=== PATIENT | female | born 1975 | race Two or more races ===

== ENCOUNTER 2019-08-22 03:36 | Emergency (ER) | payer SELFPAY ==
[~2019-08-22] VITALS: Ht 162.6 cm; Wt 74.8 kg
== END 2019-08-22 05:16 ==
LOC: ER 03:38
DX: Z02.89 Encounter for other administrative examinations (principal)

== ENCOUNTER 2024-10-26 12:52 | Inpatient (IN) | payer MEDICAID, OTHER ==
[~2024-10-26] VITALS: Ht 170.2 cm; Wt 65.5 kg
[2024-10-26] MEDS: SODIUM CHLORIDE 0.9% 1,000 ML IV ONE (13:26)
[2024-10-26] MEDS: PANTOPRAZOLE 40 MG/10 ML VIAL INJ IV ONE (13:26)
[2024-10-26] MEDS: PROCHLORPERAZINE EDISYLATE 5 MG/ML 2ML VIAL IV ONE (13:26)
--- NOTE | 2024-10-26 13:42 | ED.PDOC ---
History of Present Illness HPI Comments This is a 49-year-old female who comes in with chief complaint of dizziness as well as significant amount of vomiting and a near syncopal episode. The patient states that she was drinking a significant amount of alcohol last night and then today she woke up very dizzy. She was at a restaurant and had a near syncopal episode as well as vomiting so EMS were called and the patient was transported to our facility. Upon arrival, the patient was still complaining of some nausea. She did receive Zofran 8 mg IV push as well as some normal saline. The patient denies any fever or chills. The patient denies any other substance use. Chief Complaint: Nausea/Vomiting Time Seen by MD: 13:01 Primary Care Provider: UNKNOWN Reviewed Notes: Nurses Notes, Medications, Allergies (Allergies to penicillin) Allergies: Coded Allergies: Penicillins (Verified Allergy, Unknown, 10/26/24) Information Source: Patient Mode of Arrival: EMS Severity: Moderate Timing: Hours Duration: Since onset Prehospital treatment: Grounds And Nursery Specialist, IVF, Other (Normal saline bolus, Zofran IV) Associated signs and symptoms Vomiting with dizziness and near-syncope Past Medical History PAST MEDICAL HISTORY: Denies Surgical History: Surgical History (Other): Uterine ablation HIGH SCHOOL LIBRARIAN History: No Pertinent HIGH SCHOOL LIBRARIAN History Family History Family History: No family hx of Cancer, No family hx of DM, No family hx of Heart melissa Social History Smoker: Other (VAPE) Alcohol: Heavy Drugs: Denies Drug Use Lives In: Home, Unobtainable Constitutional: reports: weakness; denies: chills, diaphoresis, fatigue, fever, malaise, sweats, others EENTM: denies: blurred vision, double vision, ear bleeding, ear discharge, ear drainage, ear pain, ear ringing, eye pain, eye redness, hearing loss, mouth pain, mouth swelling, nasal discharge, nose bleeding, nose congestion, nose pain, photophobia, tearing, throat pain, throat swelling, voice changes, others Respiratory: denies: cough, hemoptysis, orthopnea, SOB at rest, shortness of breath, SOB with excertion, stridor, wheezing, others Cardiovascular: reports: syncope (Near-syncope); denies: chest pain, dizzy spells, diaphoresis, Dyspnea on exertion, edema, irregular heart beat, left arm pain, lightheadedness, palpitations, PND, others Gastrointestinal: reports: nausea, vomiting; denies: abdomen distended, abdominal pain, blood streaked bowels, constipated, diarrhea, dysphagia, difficulty swallowing, hematemesis, melena, poor appetite, poor fluid intake, rectal bleeding, rectal pain, others Genitourinary: denies: abnormal vagina bleeding, burning, dyspareunia, dysuria, flank pain, frequency, hematuria, incontinence, pain, , vagina discharge, urgency, others Neurological: denies: dizziness, fainting, headache, left sided numbness, left sided weakness, numbness, paresthesia, pre-existing deficit, right sided numbness, right sided weakness, seizure, speech problems, tingling, tremors, weakness, others Musculoskeletal: denies: back pain, gout, joint pain, joint swelling, muscle pain, muscle stiffness, neck pain, others Integumetry: denies: bruises, change in color, change in hair/nails, dryness, laceration, lesions, lumps, rash, wounds, others Allergic/Immunocompromised: denies: Difficulty Healing, Frequent Infections, Hives, Itching, others Hematologic/Lymphatic: denies: anemia, blood clots, easy bleeding, easy bruising, swollen glands, others Endocrine: denies: excessive hunger, excessive sweating, excessive thirst, excessive urination, flushing, intolerance to cold, intolerance to heat, unexplained weight gain, unexplained weight loss, others Psychiatric: denies: anxiety, bipolar disorder, depression, hopeless, panic disorder, schizophrenia, sleepless, suicidal, others Physical Exam General Appearance: Moderate Distress HEENT: Pale Conjuntivae (L), Pale Conjuntivae (R), Pharynx Normal, TMs Normal Neck: Full Range of Motion, Non-Tender, Normal, Normal Inspection Respiratory: Chest Non-Tender, Lungs Clear, No Accessory Muscle Use, No Respiratory Distress, Normal Breath Sounds Cardiovascular: No Edema, No JVD, No Murmur, No Gallop, Normal Peripheral Pulses, Regular Rate/Rhythm Breast Exam: Deferred Gastrointestinal: No Organomegaly, Non Tender, No Pulsatile Mass, Normal Bowel Sounds, Soft Genitalia: Deferred Pelvic: Deferred Rectal: Deferred Extremities: No calf tenderness, Normal capillary refill, Normal inspection, Normal range of motion, Non-tender, No pedal edema Musculoskeletal : Apperance: Normal Neurologic: Alert, head grinder II-XII nml as Tested, Motor Weakness, Normal Affect, Normal Mood, No Sensory Deficits Cerebellar Function: Normal Reflexes: Normal Skin: Dry, Normal Color, Warm Lymphatic: No Adenopathy Was a procedure done? Was a procedure done?: No Differential Dx Considerations may include: Gastroenteritis, generalized weakness, dehydration, viral syndrome, alcohol withdrawal X-Ray, Labs, Meds, VS Vital Signs Date Time Temp Pulse Resp B/P (MAP) Pulse Ox O2 Delivery O2 Flow Rate FiO2 10/26/24 14:05 98.2 64 17 114/65 (81) 99 98.2 10/26/24 13:36 Room Air* 0 21 10/26/24 12:57 97.7 54 24 105/95 (98) 98 97.7 Lab Test 10/26/24 13:53 10/26/24 13:36 Range/Units Urine Color Colorless Yellow Urine Clarity Clear Clear Urine pH 8.0 5.0-9.0 Urine Specific [place] 1.013 1.001-1.035 Urine Protein Trace H Negative Urine Ketones Negative Negative Urine Blood 1+ H Negative /uL Urine Nitrite Negative Negative Urine Bilirubin Negative Negative Urine Urobilinogen Normal Negative mg/dL Urine Leukocyte Esterase Negative Negative /uL Urine RBC <1 0 - 4 /hpf Urine Microscopic WBC 1 0-5 /HPF Urine Squamous Epithelial Cells Few <5 /hpf Urine Bacteria Few H None Seen /hpf Urine Glucose Normal Normal mg/dL Urine Opiates Screen Neg NEGATIVE Urine Fentanyl Screen Neg NEGATIVE Urine Barbiturates Screen Neg NEGATIVE Urine Phencyclidine Screen Neg NEGATIVE Urine Amphetamines Screen Neg NEGATIVE Urine Benzodiazepines Screen Neg NEGATIVE Urine Cocaine Screen Neg NEGATIVE Urine Cannabinoids Screen Pos NEGATIVE White Blood Count 9.6 4.4-10.8 10^3/uL Red Blood Count 4.80 4.0-5.20 10^6/uL Hemoglobin 14.7 12.2-16.2 g/dL Hematocrit 42.1 36.0-46.0 % Mean Corpuscular Volume 87.6 80.0-100.0 fL Mean Corpuscular Hemoglobin 30.7 28.0-32.0 pg Mean Corpuscular Hemoglobin Concent 35.1 32.0-36.0 g/dL Red Cell Distribution Width 13.6 11.8-14.3 % Platelet Count 177 140-450 10^3/uL Mean Platelet Volume 8.1 6.9-10.8 fL Neutrophils (%) (Auto) 87.6 H 37.0-80.0 % Lymphocytes (%) (Auto) 8.3 L 10.0-50.0 % Monocytes (%) (Auto) 3.2 0.0-12.0 % Eosinophils (%) (Auto) 0.2 0.0-7.0 % Basophils (%) (Auto) 0.7 0.0-2.0 % Neutrophils # (Auto) 8.4 1.6-8.6 10 ^3/uL Lymphocytes # (Auto) 0.8 0.4-5.4 10 ^3/uL Monocytes # (Auto) 0.3 0-1.3 10 ^3/uL Eosinophils # (Auto) 0 0-0.8 10 ^3/uL Basophils # (Auto) 0.1 0-0.2 10 ^3/uL Nucleated Red Blood Cells 0.2 % Sodium Level 138 136-145 mmol/L Potassium Level 4.2 3.5-5.1 mmol/L Chloride Level 103 98-107 mmol/L Carbon Dioxide Level 25 20-31 mmol/L Anion Gap 10 5-15 Blood Urea Nitrogen 8 L 9-23 mg/dL Creatinine 0.68 0.550-1.02 mg/dL Glomerular Filtration Rate Calc 105 >90 mL/min BUN/Creatinine Ratio 11.8 10.0-20.0 Serum Glucose 131 H 74-106 mg/dL Calcium Level 9.8 8.7-10.4 mg/dL Total Bilirubin 0.5 0.2-1.0 mg/dL Aspartate Amino Transferase (AST) 17 13-40 U/L Alanine Aminotransferase (ALT) 23 7-40 U/L Alkaline Phosphatase 76 46-116 U/L Total Protein 7.8 5.7-8.2 g/dL Albumin 5.1 H 3.2-4.8 g/dL Lipase 28 12-53 U/L Plasma/Serum Blood Alcohol < 3.0 <10 mg/dL Current Medications Medications (Trade) Dose Ordered Sig/Ama Route Start Time Stop Time Status Last Admin Sodium Chloride 1,000 ml @ 1,000 mls/hr Q1H ONCE IV 10/26/24 13:15 10/26/24 14:14 DC 10/26/24 13:26 Prochlorperazine Edisylate (Compazine Inj) 10 mg ONCE ONCE IV 10/26/24 13:15 10/26/24 13:16 DC 10/26/24 13:26 Pantoprazole Sodium (Protonix) 40 mg ONCE ONCE IV 10/26/24 13:15 10/26/24 13:16 DC 10/26/24 13:26 Lorazepam (Ativan Inj) 1 mg ONCE ONCE IV 10/26/24 15:30 10/26/24 15:31 DC 10/26/24 15:59 The CBC is within normal limits. The chemistry panel is within normal limits The alcohol level is negative. The urine tox is positive for marijuana. The patient's urine test is negative for infection The patient was having alcohol withdrawal symptoms and still does not feel well. The patient did receive Compazine IV push for the nausea and vomiting The patient received Protonix 40 mg IV push The patient received Ativan 1 mg IV push The patient bolused with normal saline at 1 L bolus At this time, the patient was being admitted Images Reviewed?: Images reviewed and evaluated by me Time of 1ST Reevaluation: 13:42 Reevaluation 1ST: Unchanged Patient Education/Counseling: Diagnosis, Treatment, Prognosis Family Education/Counseling: No Family Present Departure 1 Departure Time of Disposition: 16:18 Impression: Primary Impression: Alcohol withdrawal delirium Additional Impressions: Intractable vomiting Marijuana use Disposition: 09 ADMITTED INPATIENT Admit to: [facility] Condition: Fair Critical Care Note Critical Care Time?: No Stability Stability form required: Yes Unstable for transfer: ED Physician Assesment (Clinical assesment) Heart Score Heart Score: Heart Score Response (Comments) Value History N/A 0 EKG N/A 0 Age N/A 0 Risk Factors N/A 0 Troponin N/A 0 Total 0 JING KHAN MD Oct 26, 2024 13:42
[2024-10-26 13:47] LABS: Basophils # (auto) 0.1 10 ^3/uL (0-0.2); Basophils % (auto) 0.7 % (0.0-2.0); Eosinophils # (auto) 0 10 ^3/uL (0-0.8); Eosinophils % (auto) 0.2 % (0.0-7.0); Hematocrit 42.1 % (36.0-46.0); Hemoglobin 14.7 g/dL (12.2-16.2); Lymphocytes # (auto) 0.8 10 ^3/uL (0.4-5.4); Lymphocytes % (auto) 8.3 % (10.0-50.0); Mean Corpuscular Hemoglobin 30.7 pg (28.0-32.0); Mean Corpuscular Hgb Conc. 35.1 g/dL (32.0-36.0); Mean Corpuscular Volume 87.6 fL (80.0-100.0); Monocytes # (auto) 0.3 10 ^3/uL (0-1.3); Monocytes % (auto) 3.2 % (0.0-12.0); Neutrophils # (auto) 8.4 10 ^3/uL (1.6-8.6); Neutrophils % (auto) 87.6 % (37.0-80.0); Nucleated Red Blood Cells % 0.2 %; Platelet Count (auto) 177 10^3/uL (140-450); Red Cell Distribution Width 13.6 % (11.8-14.3); White Blood Cell 9.6 10^3/uL (4.4-10.8)
[2024-10-26 14:08] LABS: Alanine Aminotransferase 23 U/L (7-40); Alkaline Phosphatase 76 U/L (46-116); Anion Gap 10 (5-15); Aspartate Aminotransferase 17 U/L (13-40); BUN/Creatinine Ratio 11.8 (10.0-20.0); Bilirubin, Total 0.5 mg/dL (0.2-1.0); Calcium 9.8 mg/dL (8.7-10.4); Carbon Dioxide 25 mmol/L (20-31); Chloride 103 mmol/L (98-107); Potassium 4.2 mmol/L (3.5-5.1); Sodium 138 mmol/L (136-145); Total Protein 7.8 g/dL (5.7-8.2)
[2024-10-26 14:10] LABS: Urine Bacteria FEW /hpf (None Seen); Urine Blood 1+ /uL (Negative); Urine Clarity Clear (Clear); Urine Color Colorless (Yellow); Urine Protein, UAD TRACE (Negative); Urine Specific Gravity 1.013 (1.001-1.035); Urine Squamous Epithelial Cell FEW /hpf (<5); Urine Urobilinogen Normal (Negative); Urine WBC 1 /HPF (0-5)
[2024-10-26 14:11] LABS: Albumin 5.1 g/dL (3.2-4.8); Blood Alcohol < 3.0 mg/dL (<10); Blood Urea Nitrogen 8 mg/dL (9-23); Glucose 131 mg/dL (74-106)
[2024-10-26 14:20] LABS: Cannabinoid Screen, Urine Pos (NEGATIVE)
[2024-10-26 14:31] LABS: Amphetamine Screen, Urine Neg (NEGATIVE); Barbiturate Scree,Urine Neg (NEGATIVE); Benzodiazephine Screen, Urine Neg (NEGATIVE); Cocaine Screen, Urine Neg (NEGATIVE); Opiate Scree,Urine Neg (NEGATIVE); Phencyclidine Screen, Urine Neg (NEGATIVE)
[2024-10-26 14:50] LABS: Lipase 28 U/L (12-53)
[2024-10-26] MEDS: LORazepam 2MG/ML-1ML VIAL IV ONE (15:59)
--- NOTE | 2024-10-26 18:16 | DVHHP2 ---
Admitting Diagnosis: Nausea or vomiting History of Present Illness This is a 49-year-old female who comes in with chief complaint of dizziness as well as significant amount of vomiting and a near syncopal episode. The patient states that she was drinking a significant amount of alcohol last night and then today she woke up very dizzy. She was at a restaurant and had a near syncopal episode as well as vomiting so EMS were called and the patient was transported to our facility. Upon arrival, the patient was still complaining of some nausea. She did receive Zofran 8 mg IV push as well as some normal saline. The patient denies any fever or chills. The patient denies any other substance use. PAST MEDICAL HISTORY: Denies Surgical History: Surgical History (Other): Uterine ablation FAMILY LAWYER History: No Pertinent FAMILY LAWYER History Family History Family History: No family hx of Cancer, No family hx of DM, No family hx of Heart melissa Social History Smoker: Other (VAPE) Alcohol: Heavy Drugs: Denies Drug Use Lives In: Home, Unobtainable Allergies: Coded Allergies: Penicillins (Verified Allergy, Unknown, 10/26/24) Current Medications Current Medications Medications (Trade) Dose Ordered Sig/Ama Route PRN Reason Start Time Stop Time Status Last Admin Pantoprazole Sodium (Protonix Tablet) 40 mg DAILY PO 10/26/24 18:30 UNV Thiamine HCl 100 mg DAILY PO 10/27/24 10:00 UNV Folic Acid 1 mg DAILY PO 10/27/24 10:00 UNV Multivitamins (Mvi Tab) 1 tab DAILY PO 10/27/24 10:00 UNV Lorazepam (Ativan Tablet) 2 mg Q2HPRN PRN PO ETOH-SEE PROTOCOL 10/26/24 18:30 UNV Sodium Chloride (Saline Lock Ns) 10 ml Q8HR IV 10/26/24 22:00 UNV Docusate Sodium (Colace Capsule) 100 mg BIDPRN PRN PO FOR CONSTIPATION 10/26/24 18:30 UNV Acetaminophen (Tylenol Tablet) 650 mg Q6HP PRN PO PAIN SCALE 1-3 OR TEMP>100.4 10/26/24 18:30 UNV Acetaminophen/ Hydrocodone Bitart ([place] 5/325MG Tab) 1 tab Q4HP PRN PO MODERATE PAIN (4-6 PAIN SCALE) 10/26/24 18:30 UNV Hydromorphone HCl (Dilaudid Injection) 0.5 mg Q4HP PRN IV SEVERE PAIN (7-10 PAIN SCALE) 10/26/24 18:30 UNV Ondansetron HCl (Zofran) 4 mg Q4HP PRN IV NAUSEA / VOMITING 10/26/24 18:30 UNV Enoxaparin Sodium (Lovenox) 40 mg DAILY SC 10/27/24 10:00 UNV Vital Signs Vital Signs Date Time Temp Pulse Resp B/P (MAP) Pulse Ox O2 Delivery O2 Flow Rate FiO2 10/26/24 14:05 98.2 64 17 114/65 (81) 99 98.2 10/26/24 13:36 Room Air* 0 21 Physical Exam Generally-49 years old woman, well nourished well developed. Moderate distress HEENT-atraumatic, normocephalic Heart-regular rate and rhythm Lungs clear to auscultate bilaterally Abdomen soft, mild tender epigastrium, nondistended Musculoskeletal-no edema cyanosis Neuro-AO x3, cranial nerves 2-12 grossly intact. Strength and sensory intact. Mild tremors in upper extremities Results Labs Test 10/26/24 13:53 10/26/24 13:36 Range/Units Urine Color Colorless Yellow Urine Clarity Clear Clear Urine pH 8.0 5.0-9.0 Urine Specific [place] 1.013 1.001-1.035 Urine Protein Trace H Negative Urine Ketones Negative Negative Urine Blood 1+ H Negative /uL Urine Nitrite Negative Negative Urine Bilirubin Negative Negative Urine Urobilinogen Normal Negative mg/dL Urine Leukocyte Esterase Negative Negative /uL Urine RBC <1 0 - 4 /hpf Urine Microscopic WBC 1 0-5 /HPF Urine Squamous Epithelial Cells Few <5 /hpf Urine Bacteria Few H None Seen /hpf Urine Glucose Normal Normal mg/dL Urine Opiates Screen Neg NEGATIVE Urine Fentanyl Screen Neg NEGATIVE Urine Barbiturates Screen Neg NEGATIVE Urine Phencyclidine Screen Neg NEGATIVE Urine Amphetamines Screen Neg NEGATIVE Urine Benzodiazepines Screen Neg NEGATIVE Urine Cocaine Screen Neg NEGATIVE Urine Cannabinoids Screen Pos NEGATIVE White Blood Count 9.6 4.4-10.8 10^3/uL Red Blood Count 4.80 4.0-5.20 10^6/uL Hemoglobin 14.7 12.2-16.2 g/dL Hematocrit 42.1 36.0-46.0 % Mean Corpuscular Volume 87.6 80.0-100.0 fL Mean Corpuscular Hemoglobin 30.7 28.0-32.0 pg Mean Corpuscular Hemoglobin Concent 35.1 32.0-36.0 g/dL Red Cell Distribution Width 13.6 11.8-14.3 % Platelet Count 177 140-450 10^3/uL Mean Platelet Volume 8.1 6.9-10.8 fL Neutrophils (%) (Auto) 87.6 H 37.0-80.0 % Lymphocytes (%) (Auto) 8.3 L 10.0-50.0 % Monocytes (%) (Auto) 3.2 0.0-12.0 % Eosinophils (%) (Auto) 0.2 0.0-7.0 % Basophils (%) (Auto) 0.7 0.0-2.0 % Neutrophils # (Auto) 8.4 1.6-8.6 10 ^3/uL Lymphocytes # (Auto) 0.8 0.4-5.4 10 ^3/uL Monocytes # (Auto) 0.3 0-1.3 10 ^3/uL Eosinophils # (Auto) 0 0-0.8 10 ^3/uL Basophils # (Auto) 0.1 0-0.2 10 ^3/uL Nucleated Red Blood Cells 0.2 % Sodium Level 138 136-145 mmol/L Potassium Level 4.2 3.5-5.1 mmol/L Chloride Level 103 98-107 mmol/L Carbon Dioxide Level 25 20-31 mmol/L Anion Gap 10 5-15 Blood Urea Nitrogen 8 L 9-23 mg/dL Creatinine 0.68 0.550-1.02 mg/dL Glomerular Filtration Rate Calc 105 >90 mL/min BUN/Creatinine Ratio 11.8 10.0-20.0 Serum Glucose 131 H 74-106 mg/dL Calcium Level 9.8 8.7-10.4 mg/dL Total Bilirubin 0.5 0.2-1.0 mg/dL Aspartate Amino Transferase (AST) 17 13-40 U/L Alanine Aminotransferase (ALT) 23 7-40 U/L Alkaline Phosphatase 76 46-116 U/L Total Protein 7.8 5.7-8.2 g/dL Albumin 5.1 H 3.2-4.8 g/dL Lipase 28 12-53 U/L Plasma/Serum Blood Alcohol < 3.0 <10 mg/dL Primary Diagnosis Alcohol withdrawal Cannabinoid use Plan Patient received Ativan prior to examination Patient is awake, alert, mild tremors in upper extremities IV fluids CIWA scoring daily Alcohol withdrawal protocol Thiamine and folate supplement Antiemetic Full code Lovenox for DVT prophylaxis PPI for GI prophylaxis Clear liquid diet, advance as tolerated Plan discussed with: Patient Problems List: (1) Intractable vomiting Status: Acute (2) Alcohol withdrawal delirium Status: Acute (3) Marijuana use Status: Acute Date of Service: Oct 26, 2024 Billing Provider: DARIEL RAND MD Common Visit Codes: [id number] INP/OBS CARE (MOD) DARIEL RAND MD Oct 26, 2024 18:16
[2024-10-26] MEDS ORDERED: DOCUSATE SOD 100 MG CAP PO PRN (18:30)
[2024-10-26] MEDS: PANTOPRAZOLE 40 MG TAB PO SCH (18:30)
[2024-10-26] MEDS ORDERED: ONDANSETRON HCL 4 MG/2 ML VIAL IV PRN (18:30)
[2024-10-26] MEDS ORDERED: LORazepam 0.5 MG TAB PO PRN (18:30)
[2024-10-26] MEDS ORDERED: HYDROmorphone HCL 2 MG/ML VL/or syr IV PRN (18:30)
[2024-10-26] MEDS: MULTIPLE VITAMIN TAB PO SCH (18:58)
[2024-10-26] MEDS: THIAMINE HCL 100 MG TAB PO SCH (18:58)
[2024-10-26] MEDS: LACTATED RINGER'S 1,000 ML IV ONE (18:58)
[2024-10-26] MEDS: FOLIC ACID 1 MG TAB PO SCH (18:58)
[2024-10-26 21:34] VITALS: BP 156/76; PULSE 58; RESP 17; TEMP 98.2; O2SAT 98
[2024-10-26] MEDS: SODIUM CHLOR 0.9% PF (SALINE LOCK) 10ML VIAL/SYR IV SCH (22:00)
[2024-10-27 01:00] VITALS: BP 128/56; PULSE 58; RESP 18; TEMP 98.8; O2SAT 97
[2024-10-27 05:00] VITALS: BP 128/65; PULSE 61; RESP 17; TEMP 98.8; O2SAT 98
[2024-10-27 06:56] LABS: Basophils # (auto) 0 10 ^3/uL (0-0.2); Basophils % (auto) 0.4 % (0.0-2.0); Eosinophils # (auto) 0.1 10 ^3/uL (0-0.8); Eosinophils % (auto) 0.9 % (0.0-7.0); Hematocrit 37.5 % (36.0-46.0); Hemoglobin 13.4 g/dL (12.2-16.2); Lymphocytes # (auto) 1.3 10 ^3/uL (0.4-5.4); Lymphocytes % (auto) 22.2 % (10.0-50.0); Mean Corpuscular Hemoglobin 30.9 pg (28.0-32.0); Mean Corpuscular Hgb Conc. 35.6 g/dL (32.0-36.0); Mean Corpuscular Volume 86.9 fL (80.0-100.0); Monocytes # (auto) 0.4 10 ^3/uL (0-1.3); Neutrophils # (auto) 4.2 10 ^3/uL (1.6-8.6); Neutrophils % (auto) 70.5 % (37.0-80.0); Nucleated Red Blood Cells % 0.2 %; Platelet Count (auto) 184 10^3/uL (140-450); Red Blood Cells 4.32 10^6/uL (4.0-5.20); Red Cell Distribution Width 13.3 % (11.8-14.3); White Blood Cell 5.9 10^3/uL (4.4-10.8)
[2024-10-27 07:22] LABS: Alanine Aminotransferase 17 U/L (7-40); Albumin 4.2 g/dL (3.2-4.8); Alkaline Phosphatase 56 U/L (46-116); Anion Gap 8 (5-15); BUN/Creatinine Ratio 12.5 (10.0-20.0); Calcium 9.4 mg/dL (8.7-10.4); Carbon Dioxide 26 mmol/L (20-31); Chloride 105 mmol/L (98-107); Glucose 98 mg/dL (74-106); Magnesium 1.7 mg/dL (1.6-2.6); Potassium 3.6 mmol/L (3.5-5.1); Sodium 139 mmol/L (136-145); Total Protein 6.3 g/dL (5.7-8.2)
[2024-10-27 07:24] LABS: Bilirubin, Total 0.8 mg/dL (0.2-1.0)
[2024-10-27 07:27] LABS: Aspartate Aminotransferase 12 U/L (13-40); Blood Urea Nitrogen 9 mg/dL (9-23)
[2024-10-27 09:00] VITALS: BP 129/68; PULSE 57; RESP 16; TEMP 98.8; O2SAT 97
[2024-10-27] MEDS: ENOXAPARIN SOD 40 MG/0.4 ML SYRINGE SC SCH (09:03)
--- NOTE | 2024-10-27 12:01 | DVH ---
EXAM: CT HEAD WITHOUT CONTRAST INDICATION: dizziness TECHNIQUE: CT of the head without intravenous contrast. Coronal and sagittal reformatted images are s ubmitted. Radiation Dose : 1. Head: CT Dose: CTDI volume is 56.94 mGy. Dose-length product is 1008.2 mGy*cm The dose indicators for CT are the volume Computed Tomography (CT) Dose Index (CTDIvol) and the Dose Length Product (DLP), and are measured in units of mGy and mGy-cm, respectively. These indicators are not patient dose, but values generated from the CT scanner acquisition factors. The report includes radiation exposure data for exposures received during this examination. All CT scans at this medical facility are performed using dose modulation techniques as appropriate to a performed exam including the following: Automated exposure control was utilized; adjustment of the MA and/or KV according to patient size; and use of iterative reconstruction technique. COMPARISON: None FINDINGS: There is no evidence of acute intracranial hemorrhage, extra-axial collection, mass effect, midline s hift, herniation or hydrocephalus. The ventricles, sulci and cisterns are age appropriate. The gastelum-white differentiation is intact. The visualized paranasal sinuses and mastoid air cells are clear. No depressed calvarial fracture. The surrounding soft tissues are unremarkable. IMPRESSION: 1. No evidence of acute intracranial abnormality.
[2024-10-27 13:00] VITALS: BP 153/70; PULSE 53; RESP 17; TEMP 99.2; O2SAT 96
[2024-10-27 13:36] LABS: Triglycerides 119 mg/dL (< 150)
[2024-10-27 13:37] LABS: LDL Cholesterol 91 mg/dL (< 100)
[2024-10-27 13:38] LABS: Cholesterol 177 mg/dL (< 200)
[2024-10-27 13:41] LABS: HDL Cholesterol 73 mg/dL (40-59)
[2024-10-27 13:42] LABS: Folate (Folic Acid) 20.63 ng/mL (>5.38)
[2024-10-27] MEDS: ACETAMINOPHEN 325 MG TAB PO PRN (15:22)
--- NOTE | 2024-10-27 16:29 | DVHPNRES ---
Progress Note Date Seen: Oct 27, 2024 Resident Creating Document: ANIKA HANSON RESIDENT Medical Necessity Reason Pt with a Central, PICC or Fol: No Subjective Review of Systems Patient came to the office with a chief complaint of dizziness as well as likely presyncopal episode. As per patient she was drinking alcohol more than usual according for VS and for short next day she started waking up being dizzy and likely a near syncopal episode that listen to come to the hospital. They also complaining of mild dizziness, nor any other symptoms including agitation, hallucination, nausea, vomiting, any other symptom. ROS Complaining of mild dizziness Eyes: No Pain, No Vision change, No Conjunctivae inflammation, No Eyelid inflammation, No Other, No Redness ENT: No Ear pain, No Ear discharge, No Nose pain, No Nose discharge, No Nose congestion, No Mouth pain, No Mouth swelling, No Throat pain, No Throat swelling, No Other Cardiovascular: No Chest Pain, No Palpitations, No Orthopnea, No Paroxysmal Noc. Dyspnea, No Edema, No Lt Headedness, No Other Respiratory: No Cough, No Dry, No Shortness of breath, No SOB with exertion, No Wheezing, No Hemoptysis, No Pleuritic Pain, No Sputum, No Other Gastrointestinal: No Nausea, No Vomiting, No Abdominal Pain, No Diarrhea, No Constipation, No Melena, No Hematochezia, No Other Genitourinary: No Dysuria, No Frequency, No Incontinence, No Hematuria, No Retention, No Other Musculoskeletal: No other, No neck pain, No shoulder pain, No arm pain, No back pain, No hand pain, No leg pain, No foot pain Skin: No Rash, No Lesions, No Jaundice, No Bruising, No Other Objective vital signs Vital Sign Date Time Temp Pulse Resp B/P (MAP) Pulse Ox O2 Delivery O2 Flow Rate FiO2 10/27/24 13:00 99.2 53 17 153/70 (97) 96 99.2 10/27/24 08:00 Room Air* 0 21 Total Intake and Output 10/26/24 10/26/24 10/27/24 15:00 23:00 07:00 Intake Total 1000 ml 100 ml Balance 1000 ml 100 ml medications Current Medications Medications Dose Ordered Sig/Ama Route Start Time Stop Time Status Last Admin Dose Admin Pantoprazole Sodium 40 mg DAILY PO 10/26/24 18:30 10/27/24 09:02 40 MG Thiamine HCl 100 mg DAILY PO 10/26/24 18:31 10/27/24 09:02 100 MG Folic Acid 1 mg DAILY PO 10/26/24 18:30 10/27/24 09:02 1 MG Multivitamins 1 tab DAILY PO 10/26/24 18:31 10/27/24 09:02 1 TAB Lorazepam 2 mg Q2HPRN PRN PO 10/26/24 18:30 Sodium Chloride 10 ml Q8HR IV 10/26/24 22:00 10/27/24 14:20 10 ML Docusate Sodium 100 mg BIDPRN PRN PO 10/26/24 18:30 Acetaminophen 650 mg Q6HP PRN PO 10/26/24 18:30 10/27/24 15:22 650 MG Acetaminophen/ Hydrocodone Bitart 1 tab Q4HP PRN PO 10/26/24 18:30 Hydromorphone HCl 0.5 mg Q4HP PRN IV 10/26/24 18:30 Ondansetron HCl 4 mg Q4HP PRN IV 10/26/24 18:30 Enoxaparin Sodium 40 mg DAILY SC 10/27/24 10:00 10/27/24 09:03 40 MG Examination General Appearance: Cooperative. Well developed. Well nourished. NAD Head Exam: Normal inspection Neck Exam: Normal inspection. Non-tender. Normal alignment Pulmonary/Respiratory: Chest non-tender. Clear bilateral breath sounds Cardiovascular/Chest: Regular rate and rhythm. No murmurs. No JVD. Peripheral Pulses: 2+ Radial (R). 2+ Radial (L). 2+ Pedal (R). 2+ Pedal (L) Abdominal Exam: Normal bowel sounds. Soft. Nontender. No hepatosplenomegaly. No masses Ankle Exam: Negative ankle edema Lower extremities: Negative lower extremity edema Neuro/Mental Status: A&O x4. Coherent Thoughts/Psych: Normal thought pattern. Appropriate mood and affect. Good judgement and insight Appearance: In no acute distress Skin Exam: Normal inspection. Normal color. Warm. Dry laboratory and microbiology Laboratory Tests 10/27/24 06:09 Test 10/27/24 06:09 Range/Units Serum Glucose 98 74-106 mg/dL Labs and/or images reviewed: Labs reviewed by me, Image(s) reviewed by me Problem List/Assessment/Plan Problem List/Assessment/Plan Alcohol withdrawal Dehydration Cannabinoid use History of Plan/recommendation Counseled on alcohol and marijuana use cessation for 22 minutes CIWA score two Alcohol withdrawal protocol: P.r.n. Ativan Continue folic acid 1 mg p.o. daily Continue thiamine [address] daily Head CT : Unremarkable for acute intracranial abnormality Bilaterally Carotid ultrasound: No significant stenosis. Protonix 40 mg p.o. daily for PUD prophylaxis P.r.n. ondansetron for nausea and vomiting Encourage oral water intake, tolerating diet well Patient is ambulatory Reviewed lab including CBC, CMP, A1c, lipid panel, B12, folic acid, TSH, UA. DVT prophylaxis with Lovenox PUD prophylaxis with Protonix Goals of care discussed for 20 minutes. full code status Plan discussed with Dr. Sotelo Plan discussed with: Patient, Other (RN) My Orders My Orders Orders - ANIKA HANSON RESIDENT Procedure Category Date Status Time Regular Diet DIET 10/27/24 Transmitted Breakfast Head Without Contrast CT 10/27/24 Resulted 10:34 Carotid Duplx W Color US 10/27/24 Taken DOP 15:35 Orthostatic Vital ORDERS 10/27/24 Transmitted Signs 15:35 Basic Metabolic Panel LAB 10/28/24 Verified 04:00 Addendum Addendum Addendum I was physically present for the roman portions of the service provided to patient by THE RESIDENT. I have reviewed the documentation, discussed the case with resident and agree with the resident's documentation except as noted. Also the patient's clinical case was discussed with the patient's nurse. This medical document was created using an electronic medical record system with computerized dictation system. Although this document has been carefully reviewed, there might still be some phonetic and typographical errors. These areas are purely typographical due to imperfections of the software programs, and do not reflect any compromise in the patient's medical care. Late signature. Date of Service: Oct 27, 2024 Billing Provider: BJORN SOTELO MD Common Visit Codes: [id number] INP/OBS CARE(HIGH) Secondary Visit Codes: [id number] CHNG SMOKING >10MIN (Counseled on alcohol and marijuana use cessation for 22 minutes), [id number] CARE PLAN 30 MINUTES (20 minutes) ANIKA HANSON RESIDENT Oct 27, 2024 16:29 BJORN SOTELO MD Oct 29, 2024 06:21
--- NOTE | 2024-10-27 16:37 | DVH ---
Carotid duplex REASON FOR EXAM: diziness A Carotid Duplex Study was performed. INDICATION: diziness TECHNIQUE: Herrera scale, color doppler imaging and spectral analysis were performed. FINDINGS: On herrera scale and color imaging there is no plaquing seen in the carotid arteries Velocities are as follows: (measured in cm/S): Right CCA 84 Left CCA 66 Right ICA 90 Left ICA 59 Right ICA/CCA 1.1 Left ICA/CCA 0.9 Flow in the vertebral arteries is antegrade. IMPRESSION: 1. No hemodynamically significant stenosis based on NASCET criteria
[2024-10-27 17:00] VITALS: BP 144/83; PULSE 62; RESP 19; TEMP 97.9; O2SAT 98
[2024-10-27] MEDS: HYDROcodone-ACET 5/325MG TAB PO PRN (18:27)
[2024-10-27 21:00] VITALS: BP 116/74; PULSE 54; RESP 18; TEMP 98.8; O2SAT 98
[2024-10-28] VITALS (9 sets, daily range): BP systolic 136–211; BP diastolic 74–97; PULSE 50–77; RESP 17–20; TEMP 97.9–98.3; O2SAT 95–98
[2024-10-28 06:16] LABS: Basophils # (auto) 0 10 ^3/uL (0-0.2); Basophils % (auto) 0.6 % (0.0-2.0); Eosinophils # (auto) 0.1 10 ^3/uL (0-0.8); Eosinophils % (auto) 1.4 % (0.0-7.0); Hematocrit 38.8 % (36.0-46.0); Hemoglobin 13.5 g/dL (12.2-16.2); Lymphocytes # (auto) 1.9 10 ^3/uL (0.4-5.4); Lymphocytes % (auto) 34.1 % (10.0-50.0); Mean Corpuscular Hemoglobin 30.8 pg (28.0-32.0); Mean Corpuscular Hgb Conc. 34.8 g/dL (32.0-36.0); Mean Corpuscular Volume 88.5 fL (80.0-100.0); Monocytes # (auto) 0.4 10 ^3/uL (0-1.3); Monocytes % (auto) 6.5 % (0.0-12.0); Neutrophils # (auto) 3.1 10 ^3/uL (1.6-8.6); Neutrophils % (auto) 57.4 % (37.0-80.0); Nucleated Red Blood Cells % 0.1 %; Platelet Count (auto) 191 10^3/uL (140-450); Red Blood Cells 4.38 10^6/uL (4.0-5.20); Red Cell Distribution Width 13.6 % (11.8-14.3); White Blood Cell 5.4 10^3/uL (4.4-10.8)
[2024-10-28 06:24] LABS: Calcium 9.6 mg/dL (8.7-10.4); Chloride 103 mmol/L (98-107); Potassium 3.9 mmol/L (3.5-5.1); Sodium 139 mmol/L (136-145)
[2024-10-28 06:25] LABS: Anion Gap 8 (5-15); Carbon Dioxide 28 mmol/L (20-31)
[2024-10-28 06:30] LABS: Glucose 99 mg/dL (74-106)
[2024-10-28 06:31] LABS: Magnesium 1.7 mg/dL (1.6-2.6)
[2024-10-28 06:34] LABS: Blood Urea Nitrogen 9 mg/dL (9-23)
[2024-10-28] MEDS ORDERED: THIA100T10 PO (08:04)
[2024-10-28] MEDS ORDERED: FOLI-119 PO (08:04)
[2024-10-28] MEDS ORDERED: MECL1TAB42 PO (11:52)
[2024-10-28] MEDS: hydrALAZINE HCL 20 MG/ML VL IV ONE (12:30)
--- NOTE | 2024-10-28 14:43 | DVHPNRES ---
Progress Note Date Seen: Oct 28, 2024 Resident Creating Document: ANIKA HANSON RESIDENT Medical Necessity Reason Pt with a Central, PICC or Fol: No Subjective Review of Systems Patient came to the office with a chief complaint of dizziness as well as likely presyncopal episode. As per patient she was drinking alcohol more than usual according for VS and for short next day she started waking up being dizzy and likely a near syncopal episode that listen to come to the hospital. They also complaining of mild dizziness, nor any other symptoms including agitation, hallucination, nausea, vomiting, any other symptom. ROS Complaining of mild dizziness, recheck bood pressure, systolic 200s. Hold Discharge. Objective vital signs Vital Sign Date Time Temp Pulse Resp B/P (MAP) Pulse Ox O2 Delivery O2 Flow Rate FiO2 10/28/24 13:22 71 20 157/81 (106) 98 10/28/24 13:00 98.0 98.0 10/27/24 20:00 Room Air* 0 21 Total Intake and Output 10/27/24 10/27/24 10/28/24 15:00 23:00 07:00 Intake Total 1480 ml 600 ml Balance 1480 ml 600 ml medications Current Medications Medications Dose Ordered Sig/Ama Route Start Time Stop Time Status Last Admin Dose Admin Pantoprazole Sodium 40 mg DAILY PO 10/26/24 18:30 10/28/24 11:49 40 MG Thiamine HCl 100 mg DAILY PO 10/26/24 18:31 10/28/24 11:49 100 MG Folic Acid 1 mg DAILY PO 10/26/24 18:30 10/28/24 11:48 1 MG Multivitamins 1 tab DAILY PO 10/26/24 18:31 10/28/24 11:49 1 TAB Lorazepam 2 mg Q2HPRN PRN PO 10/26/24 18:30 Sodium Chloride 10 ml Q8HR IV 10/26/24 22:00 10/28/24 14:29 10 ML Docusate Sodium 100 mg BIDPRN PRN PO 10/26/24 18:30 Acetaminophen 650 mg Q6HP PRN PO 10/26/24 18:30 10/27/24 15:22 650 MG Acetaminophen/ Hydrocodone Bitart 1 tab Q4HP PRN PO 10/26/24 18:30 10/28/24 04:12 1 TAB Hydromorphone HCl 0.5 mg Q4HP PRN IV 10/26/24 18:30 Ondansetron HCl 4 mg Q4HP PRN IV 10/26/24 18:30 Enoxaparin Sodium 40 mg DAILY SC 10/27/24 10:00 10/28/24 11:49 40 MG Examination: GENERAL:Normal, HEENT:Normal, NECK:Normal, LUNGS:Normal, CVS:Normal, ABDOMEN:Normal, MSK:Normal, NEURO:Normal laboratory and microbiology Laboratory Tests 10/28/24 05:29 Test 10/28/24 05:29 Range/Units Serum Glucose 99 74-106 mg/dL Labs and/or images reviewed: Labs reviewed by me, Image(s) reviewed by me Problem List/Assessment/Plan Problem List/Assessment/Plan Alcohol withdrawal Hypertensive urgency Dehydration Cannabinoid use History of Plan/recommendation Counseled on alcohol and marijuana use cessation Librium protocol for alcohol withdrawal , CIWA 8 score Alcohol withdrawal protocol: P.r.n. Ativan, Librium Continue folic acid 1 mg p.o. daily Continue thiamine 100 [address] daily Head CT : Unremarkable for acute intracranial abnormality Bilaterally Carotid ultrasound: No significant stenosis. Protonix 40 mg p.o. daily for PUD prophylaxis P.r.n. ondansetron for nausea and vomiting Encourage oral water intake, tolerating diet well Patient is ambulatory Reviewed lab including CBC, CMP, A1c, lipid panel, B12, folic acid, TSH, UA. DVT prophylaxis with Lovenox PUD prophylaxis with Protonix Plan discussed with Dr. Sotelo Plan discussed with: Patient, Other (RN) My Orders My Orders Orders - ANIKA HANSON RESIDENT Procedure Category Date Status Time Carotid Duplx W Color US 10/27/24 Resulted DOP 15:35 Orthostatic Vital ORDERS 10/27/24 Transmitted Signs 15:35 Discharge DISCHARGE 10/28/24 Transmitted 07:59 Addendum Addendum Addendum I was physically present for the roman portions of the service provided to patient by THE RESIDENT. I have reviewed the documentation, discussed the case with resident and agree with the resident's documentation except as noted. Also the patient's clinical case was discussed with the patient's nurse. This medical document was created using an electronic medical record system with computerized dictation system. Although this document has been carefully reviewed, there might still be some phonetic and typographical errors. These areas are purely typographical due to imperfections of the software programs, and do not reflect any compromise in the patient's medical care. Late signature. Date of Service: Oct 28, 2024 Billing Provider: BJORN SOTELO MD Common Visit Codes: 13301-[id number] INP/OBS CARE(HIGH) ANIKA HANSON RESIDENT Oct 28, 2024 14:43 BJORN SOTELO MD Oct 29, 2024 06:23
[2024-10-28] MEDS ORDERED: hydrALAZINE HCL 20 MG/ML VL IV PRN (16:00)
[2024-10-28] MEDS: chlordiazePOXIDE HCL 25 MG CAP PO SCH (16:16)
[2024-10-29 01:00] VITALS: BP 148/83; PULSE 60; RESP 20; TEMP 98.2; O2SAT 97
[2024-10-29 05:00] VITALS: BP 113/71; PULSE 60; RESP 20; TEMP 98.3; O2SAT 96
[2024-10-29 08:20] VITALS: PULSE 60; RESP 19; O2SAT 96
[2024-10-29 09:00] VITALS: BP 117/67; PULSE 60; RESP 19; TEMP 98.3; O2SAT 96
[2024-10-29] MEDS ORDERED: CHLO25CA10 PO (11:11)
[2024-10-29] MEDS ORDERED: chlordiazePOXIDE HCL 25 MG CAP PO SCH (18:00)
--- NOTE | 2024-10-29 18:30 | DVHDSRES ---
Discharge Summary Date of Admission Resident Creating Document: ANIKA HANSON RESIDENT Oct 26, 2024 at 18:17 Date of Discharge: Oct 29, 2024 Admitting Diagnosis Dizziness Labs/Diagnostic Data: Laboratory Results Test 10/28/24 05:29 10/27/24 06:09 10/26/24 13:53 10/26/24 13:36 White Blood Count 5.4 10^3/uL (4.4-10.8) Red Blood Count 4.38 10^6/uL (4.0-5.20) Hemoglobin 13.5 g/dL (12.2-16.2) Hematocrit 38.8 % (36.0-46.0) Mean Corpuscular Volume 88.5 fL (80.0-100.0) Mean Corpuscular Hemoglobin 30.8 pg (28.0-32.0) Mean Corpuscular Hemoglobin Concent 34.8 g/dL (32.0-36.0) Red Cell Distribution Width 13.6 % (11.8-14.3) Platelet Count 191 10^3/uL (140-450) Mean Platelet Volume 8.3 fL (6.9-10.8) Neutrophils (%) (Auto) 57.4 % (37.0-80.0) Lymphocytes (%) (Auto) 34.1 % (10.0-50.0) Monocytes (%) (Auto) 6.5 % (0.0-12.0) Eosinophils (%) (Auto) 1.4 % (0.0-7.0) Basophils (%) (Auto) 0.6 % (0.0-2.0) Neutrophils # (Auto) 3.1 10 ^3/uL (1.6-8.6) Lymphocytes # (Auto) 1.9 10 ^3/uL (0.4-5.4) Monocytes # (Auto) 0.4 10 ^3/uL (0-1.3) Eosinophils # (Auto) 0.1 10 ^3/uL (0-0.8) Basophils # (Auto) 0 10 ^3/uL (0-0.2) Nucleated Red Blood Cells 0.1 % Sodium Level 139 mmol/L (136-145) Potassium Level 3.9 mmol/L (3.5-5.1) Chloride Level 103 mmol/L (98-107) Carbon Dioxide Level 28 mmol/L (20-31) Anion Gap 8 (5-15) Blood Urea Nitrogen 9 mg/dL (9-23) Creatinine 0.75 mg/dL (0.550-1.02) Glomerular Filtration Rate Calc 96 mL/min (>90) BUN/Creatinine Ratio 12.0 (10.0-20.0) Serum Glucose 99 mg/dL (74-106) Calcium Level 9.6 mg/dL (8.7-10.4) Magnesium Level 1.7 mg/dL (1.6-2.6) Hemoglobin A1c 4.8 % A1C (<5.7) Total Bilirubin 0.8 mg/dL (0.2-1.0) Aspartate Amino Transferase (AST) 12 U/L (13-40) Alanine Aminotransferase (ALT) 17 U/L (7-40) Alkaline Phosphatase 56 U/L (46-116) Total Protein 6.3 g/dL (5.7-8.2) Albumin 4.2 g/dL (3.2-4.8) Triglycerides Level 119 mg/dL (< 150) Cholesterol Level 177 mg/dL (< 200) LDL Cholesterol 91 mg/dL (< 100) HDL Cholesterol 73 mg/dL (40-59) Vitamin B12 Level 234 pg/mL (211-911) Folic Acid 20.63 ng/mL (>5.38) Thyroid Stimulating Hormone (TSH) 1.58 uIU/mL (0.55-4.78) Urine Color Colorless (Yellow) Urine Clarity Clear (Clear) Urine pH 8.0 (5.0-9.0) Urine Specific [place] 1.013 (1.001-1.035) Urine Protein Trace (Negative) Urine Ketones Negative (Negative) Urine Blood 1+ /uL (Negative) Urine Nitrite Negative (Negative) Urine Bilirubin Negative (Negative) Urine Urobilinogen Normal mg/dL (Negative) Urine Leukocyte Esterase Negative /uL (Negative) Urine RBC <1 /hpf (0 - 4) Urine Microscopic WBC 1 /HPF (0-5) Urine Squamous Epithelial Cells Few /hpf (<5) Urine Bacteria Few /hpf (None Seen) Urine Glucose Normal mg/dL (Normal) Urine Opiates Screen Neg (NEGATIVE) Urine Fentanyl Screen Neg (NEGATIVE) Urine Barbiturates Screen Neg (NEGATIVE) Urine Phencyclidine Screen Neg (NEGATIVE) Urine Amphetamines Screen Neg (NEGATIVE) Urine Benzodiazepines Screen Neg (NEGATIVE) Urine Cocaine Screen Neg (NEGATIVE) Urine Cannabinoids Screen Pos (NEGATIVE) Lipase 28 U/L (12-53) Plasma/Serum Blood Alcohol < 3.0 mg/dL (<10) Other Laboratory Tests 10/28/24 05:29 Brief Hx & Hospital Course: Patient is 48-year-old female with no known past medical history came to the hospital with a chief complaint of dizziness as well as likely presyncopal episode early in the morning after she drank at least 4-5 beers and 4-5 showed night before. When she walks up early in the morning, patient found to being dizzy and had near syncopal episode that prompted to visit the hospital. Patient was further evaluated for dizziness and possible alcohol withdrawal. CT scan of the head was unremarkable, negative carotid artery stenosis, EKG sinus rhythm, continue with IV fluids, folic acid, thiamine. During closely observation patient's CIWA score [place] from two to around eight with agitation, hypertension, irritation. Patient is started on Librium protocol for alcohol withdrawal. Patient's dizziness, blood pressure, agitation, anxiety significantly improved, likely symptoms related to alcohol withdrawal. Given patient's CIWA score is less than eight at the time of discharge, no signs of withdrawal after taking Librium, patient will be discharged home with oral Librium and advised to follow with primary care physician in outpatient setting. Patient was extensively counseled on alcohol cessation and advised for come to the hospital if symptom recurs or worsens. Physical examination on discharge: General Appearance: Cooperative. Well developed. Well nourished. NAD Head Exam: Normal inspection Neck Exam: Normal inspection. Non-tender. Normal alignment Pulmonary/Respiratory: Chest non-tender. Clear bilateral breath sounds Cardiovascular/Chest: Regular rate and rhythm. No murmurs. No JVD. Peripheral Pulses: 2+ Radial (R). 2+ Radial (L). 2+ Pedal (R). 2+ Pedal (L) Abdominal Exam: Normal bowel sounds. Soft. Nontender. No hepatosplenomegaly. No masses Ankle Exam: Negative ankle edema Lower extremities: Negative lower extremity edema Neuro/Mental Status: A&O x4. Coherent Thoughts/Psych: Normal thought pattern. Appropriate mood and affect. Good judgement and insight Appearance: In no acute distress Skin Exam: Normal inspection. Normal color. Warm. Dry Discussed with Dr. Alhurani Condition at Discharge: Stable Final Diagnosis/Problems List Alcohol withdrawal Hypertensive urgency Dehydration Cannabinoid use History of Discharge Disposition: Home Discharge Instruct/Medications Diet: Regular Activity: No Restrictions, As Tolerated Follow Up/Referral: -Follow up at [place] [facility] in one week Medications: -See prescription Discharge Statement: "Patient was advised to return to the ER or call 911 if any headaches, dizziness, shortness of breath, chest pain, abdominal pain, bleeding, fevers, or worsening of medical condition. Patient was counseled about treatment plan, medications, possible side effects, patientverbalized understanding. All questions were answered to the best of my ability. This discharge took greater then 30 minutes in planning, reviewing documentation, counseling the patient, and discussing with other team members." ASSESSMENT ASSESSMENT Assessment alcohol wiithdrawal Addendum Addendum Addendum I was physically present for the roman portions of the service provided to patient by THE RESIDENT. I have reviewed the documentation, discussed the case with resident and agree with the resident's documentation except as noted. Also the patient's clinical case was discussed with the patient's nurse. This medical document was created using an electronic medical record system with computerized dictation system. Although this document has been carefully reviewed, there might still be some phonetic and typographical errors. These areas are purely typographical due to imperfections of the software programs, and do not reflect any compromise in the patient's medical care. Late signature. Date of Service: Oct 29, 2024 Billing Provider: BJORN SOTELO MD Common Visit Codes: 68175-JSM/OBS DISCH DAY >30min ANIKA HANSON RESIDENT Oct 29, 2024 18:30 BJORN SOTELO MD October 31, 2024 05:12
[2024-10-30] MEDS ORDERED: chlordiazePOXIDE HCL 25 MG CAP PO SCH (18:00)
[2024-11-01] MEDS ORDERED: chlordiazePOXIDE HCL 25 MG CAP PO SCH (07:00)
== END 2024-10-29 09:36 | disposition home or self-care (01) | DRG 775 ==
LOC: EDBD 12:52 → ER 12:52 → OVERFLOW 18:17 → EAST 21:34
PROVIDERS: ADMIT Internal Medicine; ATTEND Internal Medicine
DX: F10.239 Alcohol dependence with withdrawal, unspecified (principal); F12.929 Cannabis use, unspecified with intoxication, unspecified; E86.0 Dehydration; I16.0 Hypertensive urgency; R55 Syncope and collapse; Z79.899 Other long term (current) drug therapy; Z88.0 Allergy status to penicillin; Y90.0 Blood alcohol level of less than 20 mg/100 ml
CPT/HCPCS: 36415; 70450; 80048; 80053; 80061; 80307; 80320; 81001; 82607; 82746; 83036; 83690; 83735; 84443; 85025; 93886; 96361; 96374; 96375; G0378; J2470